=== PATIENT | female | born 1975 | race Caucasian/White ===

== ENCOUNTER → 2019-04-27 | Outpatient (CLI) | payer OTHER ==
--- NOTE | 2019-04-27 12:34 | REP ---
SHOULDER: REASON: Upper limb neuropathy. COMPARISON: No priors. FINDINGS: Three views of the shoulder were performed. The acromioclavicular and glenohumeral relationships are within normal limits. There is no acute fracture or destructive osseous lesion. Electronically Signed by Dylan Betancourt DO 04/27/2019 12:43 P
== END ==
LOC: M RAD 10:03
PROVIDERS: ATTEND Physician Assistant
DX: G56.91 Unspecified mononeuropathy of right upper limb (principal)

== ENCOUNTER → 2020-01-09 | Outpatient (CLI) | payer OTHER | LOC: M LABSMTC 13:52 | PROVIDERS: ATTEND Family Medicine | DX: Z11.59 Encounter for screening for other viral diseases (principal) ==

== ENCOUNTER 2020-06-19 09:18 | Emergency (ER) | payer OTHER ==
[~2020-06-19] VITALS: Ht 165.1 cm; Wt 77.4 kg
[2020-06-19] MEDS ORDERED: MUCI600T31 PO (09:41)
[2020-06-19] MEDS ORDERED: ADV250INH INH (09:41)
[2020-06-19] MEDS ORDERED: CETI10CA2 PO (09:41)
[2020-06-19] MEDS ORDERED: EFFE150C2 PO (09:41)
[2020-06-19] MEDS ORDERED: SING10TA32 PO (09:41)
[2020-06-19 11:15] LABS: BASO % 0.4 % (0.0-1.0); EOS # 0.5 10^3/uL (0.0-0.5); HEMATOCRIT 39.3 % (36.0-47.0); HEMOGLOBIN 12.9 g/dl (12.0-15.5); LYMPH # 1.3 10^3/uL (1.5-5.0); LYMPH % 25.7 % (24.0-44.0); MEAN CORPUSCULAR HEMOGLOBIN 30.6 pg (27.0-33.0); MEAN CORPUSCULAR HGB CONC 32.8 g/dl (32.0-36.5); MEAN CORPUSCULAR VOLUME 93.3 fl (80.0-96.0); MONO # 0.4 10^3/uL (0.0-0.8); MONO % 8.4 % (0.0-5.0); NEUTROPHILS # 2.8 10^3/uL (1.5-8.5); NEUTROPHILS % 56.3 % (36.0-66.0); PLATELET COUNT, AUTOMATED 222 10^3/uL (150-450); RED BLOOD COUNT 4.21 10^6/uL (4.00-5.40)
[2020-06-19 11:30] LABS: CK-MB VALUE MASS < 1.0 NG/ML (<3.6); CPK CREATINE PHOSPHOKINASE 94 U/L (26-192); MB/CK RELATIVE INDEX 1.06 (< OR =4); TROPONIN I < 0.02 NG/ML (< 0.10)
--- NOTE | 2020-06-19 12:39 | REPVR ---
PROCEDURE INFORMATION: Exam: XR Chest, 1 View Exam date and time: 06/19/2020 12:31 PM Age: 44 years old Clinical indication: Cough TECHNIQUE: Imaging protocol: XR of the chest Views: 1 view. COMPARISON: No relevant prior studies available. FINDINGS: Lungs: Unremarkable. No consolidation. Pleural space: Unremarkable. No pleural effusion. No pneumothorax. Heart/Mediastinum: Unremarkable. No cardiomegaly. Bones/joints: Unremarkable. IMPRESSION: No acute findings. Electronically signed by: Clifford Rao On 06/19/2020 12:39:38 PM
[2020-06-19 13:37] VITALS: BP 134/87
--- NOTE | 2020-06-19 20:49 | ECGEPIP ---
- ED Test Date: 2020-06-19 Pat Name: SARITA THOMAS Department: Room: - Gender: Female Corner Former: vikram : 1975 Requested By: SHIVANI Whitlock PA-C Order Number: [id number] Reading MD: Ivy Coker Measurements Intervals [place] Rate: 59 P: 34 VT: 138 QRS: 27 QRSD: 92 T: 25 QT: 399 QTc: 397 Interpretive Statements SINUS BRADYCARDIA NO PRIOR Electronically Signed on 06-19-2020 20:48:59 EDT by Ivy Coker
== END 2020-06-19 13:39 | disposition home or self-care (01) ==
LOC: M ED 09:18
DX: J06.9 Acute upper respiratory infection, unspecified (principal); J45.901 Unspecified asthma with (acute) exacerbation; R00.1 Bradycardia, unspecified; B34.9 Viral infection, unspecified; R05 Cough; Z79.899 Other long term (current) drug therapy; J30.9 Allergic rhinitis, unspecified
CPT/HCPCS: 71045; 80047; 82550; 82553; 84484; 84702; 85025; 93005; 99284; U0003

== ENCOUNTER → 2020-07-22 | Outpatient (CLI) | payer OTHER ==
[~2020-07-22] MED LIST: ADV250INH INH; CETI10CA2 PO; EFFE150C2 PO; MUCI600T31 PO; MULTCAP PO; SING10TA32 PO
== END ==
LOC: M LABSMTC 10:58
PROVIDERS: ATTEND Anesthesiology
DX: Z01.812 Encounter for preprocedural laboratory examination (principal); Z20.828 Contact with and (suspected) exposure to other viral communicable diseases

== ENCOUNTER → 2020-07-23 | Outpatient (CLI) | payer OTHER ==
[2020-07-23 18:09] LABS: HEMATOCRIT 39.7 % (36.0-47.0); HEMOGLOBIN 13.1 g/dl (12.0-15.5); MEAN CORPUSCULAR HEMOGLOBIN 30.6 pg (27.0-33.0); MEAN CORPUSCULAR VOLUME 92.8 fl (80.0-96.0); PLATELET COUNT, AUTOMATED 278 10^3/uL (150-450); RED BLOOD COUNT 4.28 10^6/uL (4.00-5.40); WHITE BLOOD COUNT 6.6 10^3/uL (4.0-10.0)
[2020-07-23 18:44] LABS: BLOOD UREA NITROGEN 13 MG/DL (7-18); CALCIUM LEVEL 9.4 MG/DL (8.5-10.1); CARBON DIOXIDE LEVEL 30 MEQ/L (21-32); CHLORIDE LEVEL 105 MEQ/L (98-107); CREATININE FOR GFR 0.86 MG/DL (0.55-1.30); GLOMERULAR FILTRATION RATE > 60.0 (>58); GLUCOSE, FASTING 88 MG/DL (70-100); POTASSIUM SERUM 4.3 MEQ/L (3.5-5.1); SODIUM LEVEL 139 MEQ/L (136-145)
== END ==
LOC: M LAB 17:10
PROVIDERS: ATTEND Physician Assistant
DX: Z01.812 Encounter for preprocedural laboratory examination (principal); M20.22 Hallux rigidus, left foot; M79.672 Pain in left foot

== ENCOUNTER 2020-07-27 06:05 | Day surgery (SDC) | payer OTHER ==
[~2020-07-27] VITALS: Ht 165.1 cm; Wt 74.4 kg
[~2020-07-27 06:05] MED LIST changes: +LIDOCAINE 1% MDV 20ML VIAL SQ PRN
[2020-07-27] MEDS ORDERED: ceFAZolin SOD 2 GM in IV 1 EA IV ONE (07:00)
[2020-07-27] MEDS ORDERED: LR 1,000 ML IV ONE (07:00)
[2020-07-27 07:06] LABS: HCG, SERUM QUALITATIVE NEGATIVE (NEGATIVE)
[2020-07-27] MEDS ORDERED: dexameTHASONE 4 MG/ML 1ML VIAL (J1100 PER 1MG) As Ordered ONE (07:09)
[2020-07-27] MEDS ORDERED: LIDOCAINE 2% MDV 20ML VIAL As Ordered ONE (07:09)
[2020-07-27] MEDS ORDERED: BUPIVACAINE HCL 0.5% 30 ML VIAL As Ordered ONE (07:09)
[2020-07-27] MEDS ORDERED: NEOSPORIN GU IRRIG 20 ML VIAL As Ordered ONE (07:10)
[2020-07-27] MEDS ORDERED: BACITRACIN PWD 50,000 UNITS VIAL As Ordered ONE (07:10)
[2020-07-27] MEDS ORDERED: KETAMINE HCL 200 MG/20 ML VIAL As Ordered ONE (08:11)
[2020-07-27] MEDS ORDERED: propofoL 200 MG/20 ML VIAL As Ordered ONE (08:11)
[2020-07-27] MEDS ORDERED: MIDAZOLAM INJ 2MG/2ML VIAL (J2250 PER 1MG) As Ordered ONE (08:11)
[2020-07-27] MEDS ORDERED: GLYCOPYRROLATE INJ 0.2 MG/ML 2 ML VIAL As Ordered ONE (08:11)
[2020-07-27] MEDS ORDERED: LIDOCAINE 2% 100MG/5ML SDV (FOR ANES.) As Ordered ONE (08:11)
[2020-07-27] MEDS ORDERED: ONDANSETRON 4MG/2ML VIAL As Ordered ONE (08:11)
[2020-07-27] MEDS ORDERED: fentaNYL 100 MCG/2 ML INJECTION (J3010) As Ordered ONE (08:11)
[2020-07-27 09:16] VITALS: BP 126/84
--- NOTE | 2020-07-27 09:17 | REP ---
INDICATION: post op COMPARISON: 03/16/2020. TECHNIQUE: Three portable views obtained of the left foot. FINDINGS: No fracture or dislocation is seen. There is [id number] joint space narrowing at the 1st metatarsophalangeal joint with mild subchondral sclerosis. The osseous structures are otherwise unremarkable. IMPRESSION: No fracture or dislocation. <Electronically signed by Jemal Maria > 07/27/20 [id number]
--- NOTE | 2020-08-29 14:56 | RO ---
OPERATIVE NOTE DATE OF OPERATION: 07/27/2020 SURGEON: Zach Granda DPM CASTING OPERATOR HELPER: None. ANESTHESIA: Local, MAC. IRRIGATION: Dilute Bacitracin, Neomycin and Polymyxin B solution. HEMOSTASIS: Ankle pneumatic tourniquet at 200 mmHg left ankle for 28 minutes. PROCEDURE PERFORMED: Cheilectomy 1st metatarsophalangeal joint left foot. PREOPERATIVE DIAGNOSIS: Hallux rigidus deformity left foot. POSTOPERATIVE DIAGNOSIS: Hallux rigidus deformity left foot. ESTIMATED BLOOD LOSS: 1 mL. DRAINS UTILIZED: None. HARDWARE UTILIZED: None. DESCRIPTION OF OPERATION: On 07/27/2020 this 44-year-old white female was taken from hospital room to operating room and placed on the operating table in the supine position. Following induction of IV sedation and local and regional anesthesia the left lower extremity was prepped and draped in usual aseptic manner. Attention was directed to the patient's left foot. The following procedure was performed. CHEILECTOMY 1ST METATARSOPHALANGEAL JOINT LEFT FOOT: Attention was directed to the patient's left foot. There was noted to be limited range of motion of the 1st metatarsophalangeal joint. Utilizing sterile scalpel a 6 cm incision was placed over the 1st metatarsophalangeal joint medial to the extensor tendon. The incision was deepened through subcutaneous tissues and all crossing venous tributaries were identified, underscored, clamped, cut, ligated and electrocoagulated as necessary. This brought into view the hypertrophied medial eminence of the 1st metatarsal as well as spurring present over the dorsal aspect of the 1st metatarsal and proximal phalanx. The articular cartilage of the 1st metatarsal had dorsal erosion encompassing approximately 30%. However, the remaining cartilage was viable. Therefore cheilectomy was performed utilizing sagittal saw, dorsal 30% of the 1st metatarsal was resected from distal to proximal [id number] and the dorsal 30% of the proximal phalanx was similarly osteotomized. This allowed good range of motion of the 1st metatarsal greater than 60 degrees dorsal. The wound was flushed with copious amounts of dilute Bacitracin, Neomycin and Polymyxin B solution. The dorsal surfaces of the 1st metatarsal and proximal phalanx were rasped with hand-held rasp. The wound was again flushed with copious amounts of dilute Bacitracin, Neomycin and Polymyxin B solution. Attention was directed to closure where the capsular structures were coapted and maintained utilizing 3-0 Monocryl in simple interrupted type fashion. Subcutaneous tissues were coapted and maintained using 4-0 Monocryl in simple interrupted type fashion. Skin incisions were coapted and maintained utilizing 4-0 Prolene and simple interrupted and horizontal mattress type fashion. Attention was directed toward bandaging where approximately 4 mg of dexamethasone sodium phosphate 1 mL and 1 mL of 0.5% Marcaine was instilled proximal to the surgical site. Bandage was applied consisting of Adaptic, 4 x 4, 4 x 4 splint, Charmaine, Kerlix and Coban. The ankle pneumatic tourniquet was rapidly deflated and instantaneous capillary filling time was noted digits 1 through 5 of the patient's left foot. The patient apparently tolerated the surgical procedure well and was taken from the OR to the recovery room for further monitoring by the anesthesia department. Postoperative instructions were given upon discharge.
== END 2020-07-27 10:00 | disposition home or self-care (01) ==
LOC: M SDC 06:05
PROVIDERS: ATTEND Podiatrist
DX: M20.22 Hallux rigidus, left foot (principal); M20.21 Hallux rigidus, right foot; M50.30 Other cervical disc degeneration, unspecified cervical region; F32.9 Major depressive disorder, single episode, unspecified; F41.9 Anxiety disorder, unspecified; J30.89 Other allergic rhinitis; Z79.899 Other long term (current) drug therapy
CPT/HCPCS: 28289; 36415; 73630; 76000; 84703; 88300; 97116; J0690; J1100; J2250; J2405; J3010

== ENCOUNTER 2021-06-13 12:39 | Emergency (ER) | payer OTHER ==
[~2021-06-13] VITALS: Ht 165.1 cm; Wt 78.9 kg
[~2021-06-13 12:39] MED LIST changes: -LIDOCAINE 1% MDV 20ML VIAL SQ PRN
[2021-06-13] MEDS ORDERED: LIDOCAINE 5% (LIDODERM) PATCH TD ONE (13:35)
[2021-06-13] MEDS ORDERED: KETOROLAC 60MG 2ML VIAL IM ONE (13:35)
--- NOTE | 2021-06-13 14:41 | REP ---
INDICATION: thigh/buttock pain. COMPARISON: None. TECHNIQUE: Right {lower extremity duplex venous scanning is performed from the groin to the ankle level. FINDINGS: The deep veins are anechoic and fully compressible from the groin to the popliteal fossa in the right lower extremity. Color flow imaging is homogeneous. Spectral Doppler interrogation demonstrates intact respiratory variation in flow and normal manual augmentation of flow. There is no evidence of deep vein thrombosis above the knee. There is no evidence of DVT in the visualized calf veins. Doppler interrogation of the contralateral common femoral vein shows normal symmetric respiratory phasicity. IMPRESSION: No evidence of DVT in the right lower extremity femoropopliteal veins. No DVT in the visible portions of the calf veins. <Electronically signed by Enmanuel Charles > 06/13/21 [id number]
[2021-06-13] MEDS ORDERED: ASPE4PAD TOP (15:09)
[2021-06-13] MEDS ORDERED: NAPR-837 PO (15:09)
[2021-06-13] MEDS ORDERED: METH-1165 PO (15:09)
[2021-06-13 15:19] VITALS: BP 139/72
[2021-06-13] MEDS ORDERED: **NOTE PATIENT COMMENT** MISC XX SCH (21:00)
== END 2021-06-13 15:30 | disposition home or self-care (01) ==
LOC: M ED 12:39
DX: R52 Pain, unspecified (principal); M79.604 Pain in right leg; J45.909 Unspecified asthma, uncomplicated; Z79.899 Other long term (current) drug therapy
CPT/HCPCS: 93971; 96372; 99283; J1885

== ENCOUNTER → 2021-11-14 | Outpatient (CLI) | payer OTHER ==
[~2021-11-14] MED LIST changes: +ASPE4PAD TOP; +METH-1165 PO; +MIRA3350 PO; +NAPR-837 PO
[2021-11-14 18:23] LABS: BASO % 0.6 % (0.0-1.0); EOS # 0.5 10^3/uL (0.0-0.5); EOS % 7.9 % (0.0-3.0); HEMATOCRIT 36.3 % (36.0-47.0); HEMOGLOBIN 11.7 g/dl (12.0-15.5); LYMPH # 2.2 10^3/uL (1.5-5.0); LYMPH % 34.1 % (24.0-44.0); MEAN CORPUSCULAR HEMOGLOBIN 29.5 pg (27.0-33.0); MEAN CORPUSCULAR HGB CONC 32.2 g/dl (32.0-36.5); MEAN CORPUSCULAR VOLUME 91.4 fl (80.0-96.0); MONO # 0.6 10^3/uL (0.0-0.8); MONO % 9.9 % (2.0-8.0); NEUTROPHILS # 3.1 10^3/uL (1.5-8.5); NEUTROPHILS % 47.3 % (36.0-66.0); PLATELET COUNT, AUTOMATED 261 10^3/uL (150-450); RED BLOOD COUNT 3.97 10^6/uL (4.00-5.40); WHITE BLOOD COUNT 6.5 10^3/uL (4.0-10.0)
[2021-11-14 18:39] LABS: BLOOD UREA NITROGEN 14 MG/DL (7-18); CARBON DIOXIDE LEVEL 33 MEQ/L (21-32); CHLORIDE LEVEL 107 MEQ/L (98-107); CREATININE FOR GFR 0.92 MG/DL (0.55-1.30); GLOMERULAR FILTRATION RATE > 60.0 (>58); GLUCOSE, FASTING 79 MG/DL (70-100); POTASSIUM SERUM 3.9 MEQ/L (3.5-5.1); SODIUM LEVEL 140 MEQ/L (136-145)
== END ==
LOC: M LAB 16:53 → M EKG 16:53
PROVIDERS: ATTEND Podiatrist
DX: Z01.818 Encounter for other preprocedural examination (principal); M20.21 Hallux rigidus, right foot; M79.671 Pain in right foot

== ENCOUNTER → 2021-11-20 | Outpatient (CLI) | payer OTHER | LOC: M LABSMTC 11:10 | PROVIDERS: ATTEND Anesthesiology | DX: Z01.812 Encounter for preprocedural laboratory examination (principal); Z20.822 Contact with and (suspected) exposure to COVID-19 ==

== ENCOUNTER 2021-11-22 06:14 | Day surgery (SDC) | payer OTHER ==
[~2021-11-22] VITALS: Ht 165.1 cm; Wt 77.1 kg
[2021-11-22] MEDS ORDERED: ceFAZolin SOD 2 GM in IV 1 EA IV ONE (06:30)
[2021-11-22] MEDS ORDERED: LR 1,000 ML IV ONE (06:30)
[2021-11-22] MEDS ORDERED: fentaNYL 100 MCG/2 ML INJECTION As Ordered ONE (07:03)
[2021-11-22] MEDS ORDERED: MIDAZOLAM INJ 2MG/2ML VIAL (J2250 PER 1MG) As Ordered ONE (07:03)
[2021-11-22] MEDS ORDERED: propofoL 200 MG/20 ML VIAL As Ordered ONE ×2 (07:03→08:11)
[2021-11-22] MEDS ORDERED: ONDANSETRON 4MG/2ML VIAL As Ordered ONE (07:04)
[2021-11-22] MEDS ORDERED: dexameTHASONE 4 MG/ML 1ML VIAL (J1100 PER 1MG) As Ordered ONE ×3 (07:04→08:29)
[2021-11-22] MEDS ORDERED: LIDOCAINE 2% 100MG/5ML SDV (FOR ANES.) As Ordered ONE (07:04)
[2021-11-22] MEDS ORDERED: LIDOCAINE 2% MDV 20ML VIAL As Ordered ONE ×2 (07:14→08:29)
[2021-11-22] MEDS ORDERED: BUPIVACAINE HCL 0.5% 30 ML VIAL As Ordered ONE ×2 (07:14→08:29)
[2021-11-22] MEDS ORDERED: GENTAMICIN SULF 80MG/2ML VIAL As Ordered ONE ×2 (07:14→08:29)
[2021-11-22 09:30] VITALS: BP 127/69
== END 2021-11-22 09:43 | disposition home or self-care (01) ==
LOC: M SDC 06:14
PROVIDERS: ATTEND Podiatrist
DX: M20.21 Hallux rigidus, right foot (principal); K59.00 Constipation, unspecified; J45.909 Unspecified asthma, uncomplicated; Z79.51 Long term (current) use of inhaled steroids; Z79.899 Other long term (current) drug therapy; F41.9 Anxiety disorder, unspecified; F32.9 Major depressive disorder, single episode, unspecified
CPT/HCPCS: 28289; 73630; 76000; 81025; 88300; J0690; J1100; J1580; J2250; J2405; J3010

== ENCOUNTER → 2021-12-10 | Outpatient (CLI) | payer OTHER ==
[~2021-12-10] MED LIST changes: +GASTROGRAFIN SOLUTION 30ML (Q9963) As Ordered ONE; +ISOVUE-370 76% 100ML VIAL As Ordered ONE
== END ==
LOC: M RAD 09:22
PROVIDERS: ATTEND Physician Assistant Medical
DX: R14.0 Abdominal distension (gaseous) (principal); K59.00 Constipation, unspecified; K82.8 Other specified diseases of gallbladder
CPT/HCPCS: 74178; Q9963; Q9967

== ENCOUNTER → 2022-01-15 | Outpatient (CLI) | payer OTHER ==
[~2022-01-15] MED LIST changes: -GASTROGRAFIN SOLUTION 30ML (Q9963) As Ordered ONE; -ISOVUE-370 76% 100ML VIAL As Ordered ONE
== END ==
LOC: M RAD 07:01
PROVIDERS: ATTEND Physician Assistant Medical
DX: K76.0 Fatty (change of) liver, not elsewhere classified (principal); R10.9 Unspecified abdominal pain; K59.00 Constipation, unspecified; R14.0 Abdominal distension (gaseous)

== ENCOUNTER → 2022-02-05 | Outpatient (CLI) | payer OTHER | LOC: M RAD 11:00 | PROVIDERS: ATTEND Physician Assistant | DX: M54.2 Cervicalgia (principal); M47.812 Spondylosis without myelopathy or radiculopathy, cervical region ==

== ENCOUNTER → 2022-05-20 | Outpatient (CLI) | payer OTHER ==
[~2022-05-20] MED LIST changes: +PROHANCE 279.3MG/ML 15ML VIAL As Ordered ONE
== END ==
LOC: M RAD 07:25
PROVIDERS: ATTEND Physician Assistant Medical
DX: R93.3 Abnormal findings on diagnostic imaging of other parts of digestive tract (principal); K76.0 Fatty (change of) liver, not elsewhere classified; K59.00 Constipation, unspecified
CPT/HCPCS: 74183; A9576

== ENCOUNTER 2022-07-02 15:27 | Outpatient (RCR) | payer OTHER ==
[~2022-07-02 15:27] MED LIST changes: -PROHANCE 279.3MG/ML 15ML VIAL As Ordered ONE
== END 2022-07-07 ==
LOC: M PT 15:27
PROVIDERS: ATTEND Orthopaedic Surgery
DX: M47.812 Spondylosis without myelopathy or radiculopathy, cervical region (principal)

== ENCOUNTER 2022-08-05 07:00 | Outpatient (RCR) | payer OTHER | END 2022-08-06 | LOC: M PT 07:00 | PROVIDERS: ATTEND Orthopaedic Surgery | DX: M47.812 Spondylosis without myelopathy or radiculopathy, cervical region (principal) ==

== ENCOUNTER 2022-08-27 07:00 | Outpatient (RCR) | payer OTHER | END 2022-09-06 | LOC: M PT 07:00 | PROVIDERS: ATTEND Orthopaedic Surgery | DX: M47.812 Spondylosis without myelopathy or radiculopathy, cervical region (principal) ==

== ENCOUNTER 2022-09-12 07:21 | Emergency (ER) | payer OTHER ==
[~2022-09-12] VITALS: Ht 165.1 cm; Wt 82.2 kg
[2022-09-12 07:23] VITALS: BP 115/64
[2022-09-12] MEDS ORDERED: IBUP200T46 PO (07:37)
[2022-09-12] MEDS ORDERED: VITA200048 PO (07:37)
[2022-09-12] MEDS ORDERED: IBUP-1022 PO (09:23)
== END 2022-09-12 09:49 | disposition home or self-care (01) ==
LOC: M ED 07:21
DX: S93.601A Unspecified sprain of right foot, initial encounter (principal); M19.071 Primary osteoarthritis, right ankle and foot; J45.909 Unspecified asthma, uncomplicated; F41.9 Anxiety disorder, unspecified; F32.A Depression, unspecified; F10.10 Alcohol abuse, uncomplicated; Z79.811 Long term (current) use of aromatase inhibitors; Z79.899 Other long term (current) drug therapy

== ENCOUNTER → 2022-12-11 | Outpatient (CLI) | payer OTHER ==
[~2022-12-11] MED LIST changes: +IBUP-1022 PO; +IBUP200T46 PO; +MONT-5 PO; -SING10TA32 PO; +VITA200048 PO
== END ==
LOC: M WHC 15:43
PROVIDERS: ATTEND Physician Assistant
DX: S92.334D Nondisplaced fracture of third metatarsal bone, right foot, subsequent encounter for fracture with routine healing (principal); Z13.820 Encounter for screening for osteoporosis

== ENCOUNTER → 2023-08-27 | Outpatient (CLI) | payer OTHER ==
[~2023-08-27] MED LIST changes: -EFFE150C2 PO; +EFFE150C3 PO
== END ==
LOC: M WHC 14:15
PROVIDERS: ATTEND Advanced Practice Midwife
DX: Z12.31 Encounter for screening mammogram for malignant neoplasm of breast (principal)

== ENCOUNTER → 2023-08-27 | Outpatient (REF) | payer OTHER | LOC: M PLALAB 15:11 | PROVIDERS: ATTEND Advanced Practice Midwife | DX: Z12.4 Encounter for screening for malignant neoplasm of cervix (principal) | CPT/HCPCS: 87624; G0123 ==

== ENCOUNTER → 2025-05-26 | Outpatient (CLI) | payer OTHER ==
[~2025-05-26] MED LIST changes: -ADV250INH INH; +ADVA1AER9 INH; -IBUP-1022 PO; +IBUP600T42 PO
== END ==
LOC: M WUC 14:50
PROVIDERS: ATTEND Physician Assistant
DX: M25.551 Pain in right hip (principal); M79.644 Pain in right finger(s)